=== PATIENT | female | born 1950 | race Caucasian/White ===

== ENCOUNTER 2018-12-05 10:44 | Emergency (ER) | payer MEDICARE, OTHER ==
[2018-12-05] MEDS ORDERED: METH5TAB87 PO (11:05)
--- NOTE | 2018-12-05 11:06 | ER Report ---
History and Physical Time Seen By MD: 11:06 Hx. of Stated Complaint: DIZZINESS FOR SEVERAL DAYS THAT WOULD COME AND GO. NOW WILL NOT GO AWAY HPI/ROS CHIEF COMPLAINT: dizziness HISTORY OF PRESENT ILLNESS: Pt states that she has been having episodes of feeling lightheaded and dizzy on and off for about one week. States symptoms come and go "i had none yesterday but a couple the day before". Pt states come on suddenly and did not last long until this afternoon.Denies feeling like she is going to pass out. PT statse she feels off balance when they occur and will occasional grab onto something until it passes. Pt initially thought it was positional but today was at the sink standing when it occurred. Pt sat down and it did not go away. Pt state symptoms lasted almost an hour so came here. Currently on my exam has no dizziness. never had cp or abd pain. never had a headache. Pt bp found to be elevated but pt statse "its white coat syndrome". no nausea with symptoms. REVIEW OF SYSTEMS: Constitutional: No fever, no chills. Eyes: No discharge. ENT: No sore throat. Cardiovascular: No chest pain, no palpitations. Respiratory: No cough, no shortness of breath. Gastrointestinal: No abdominal pain, no vomiting. Genitourinary: No hematuria. Musculoskeletal: No back pain. Skin: No rashes. Neurological: No headache, + off balance, dizzy Allergies: Coded Allergies: No Known Drug Allergies (Unverified , 12/05/18) Home Meds Reported Medications Methimazole (METHIMAZOLE) 5 Mg Tablet, 5 MG PO 1-2XD for HYPERTHYROID for 30 Days, CAP.SA 12/05/18 Past Medical/Surgical History pmhx; hyperthyroid, ovarian cyst Pshx: hyster, ovarian cyst Reviewed Nurses Notes: Yes Hx Smoking: No Hx Alcohol Use: No Constitutional Vital Sign - Last 24 Hours 12/05/18 12/05/18 12/05/18 12/05/18 10:48 10:49 10:59 11:14 Pulse 97 81 Resp 18 11 B/P (MAP) 205/90 (128) 205/90 178/88 (118) Pulse Ox 96 91 O2 Delivery Room Air 12/05/18 12/05/18 12/05/18 12/05/18 11:30 11:44 11:49 12:00 Pulse 73 72 Resp 10 8 B/P (MAP) 174/85 (114) 176/91 (119) Pulse Ox 97 93 12/05/18 12/05/18 12:19 13:25 Pulse 77 Resp 11 B/P (MAP) 177/93 (121) Pulse Ox 93 Physical Exam General Appearance: The patient is alert, has no immediate need for airway protection and no signs of toxicity. Eyes: Pupils equal and round no pallor or injection, EOMI ENT: no pharyngeal erythema or exudates, Mucous membranes are moist, TM are nl b/l Respiratory: There are no retractions, lungs are clear to auscultation. Cardiovascular: Regular rate and rhythm. pulses are equal and symmetrical Gastrointestinal: Abdomen is soft and non tender, no masses, bowel sounds normal, no guarding, no rigidity or rebound Neurological: Cranial nerves II-XII grossly intact, no sensory or motor loss, motor 5/5 upper and lower extremities, no dysmetria, no pronator drift Skin: Warm and dry, no rashes. Musculoskeletal: Neck is supple non tender, no vertebral tenderness Extremities are non tender, nonswollen and have full range of motion. DIFFERENTIAL DIAGNOSIS: After history and physical exam differential diagnosis w as considered for benign positional vertigo, posterior cva, dehydration, anemia Medical Decision Making Data Points Result Diagram: 12/05/18 1100 12/05/18 1100 Laboratory Hematology Test 12/05/18 00:00 12/05/18 11:00 Thyroid Stimulating Hormone (TSH) 2.02 uIU/ml (0.46-4.68) Red Blood Count 4.82 M/uL (4.17-5.56) Mean Corpuscular Volume 91.0 fL (80.0-96.0) Mean Corpuscular Hemoglobin 30.8 pg (26.0-33.0) Mean Corpuscular Hemoglobin Concent 33.8 g/dL (32.0-36.0) Red Cell Distribution Width 15.4 % (11.5-14.5) Mean Platelet Volume 8.1 fL (7.2-11.1) Neutrophils (%) (Auto) 51.1 % (39.4-72.5) Lymphocytes (%) (Auto) 36.1 % (17.6-49.6) Monocytes (%) (Auto) 10.3 % (4.1-12.4) Eosinophils (%) (Auto) 1.3 % (0.4-6.7) Basophils (%) (Auto) 1.2 % (0.3-1.4) Nucleated RBC Relative Count (auto) 0.0 /100WBC Neutrophils # (Auto) 3.1 K/uL (2.0-7.4) Lymphocytes # (Auto) 2.2 K/uL (1.3-3.6) Monocytes # (Auto) 0.6 K/uL (0.3-1.0) Eosinophils # (Auto) 0.1 K/uL (0.0-0.5) Basophils # (Auto) 0.1 K/uL (0.0-0.1) Nucleated RBC Absolute Count (auto) 0.00 K/uL Sodium Level 140 mmol/L (137-145) Potassium Level 3.8 mmol/L (3.5-5.0) Chloride Level 111 mmol/L (98-107) Carbon Dioxide Level 22 mmol/L (22-31) Blood Urea Nitrogen 14 mg/dl (7-18) Creatinine 0.80 mg/dl (0.52-1.04) Glomerular Filtration Rate Calc > 60.0 Random Glucose 104 mg/dl (75-110) Calcium Level 10.3 mg/dl (8.4-10.2) Total Bilirubin 0.8 mg/dl (0.2-1.3) Aspartate Amino Transf (AST/SGOT) 23 U/L (0-35) Alanine Aminotransferase (ALT/SGPT) 25 U/L (0-56) Alkaline Phosphatase 56 U/L (0-126) Troponin I < 0.012 ng/ml Total Protein 7.7 g/dl (6.3-8.2) Albumin 4.5 g/dl (3.5-5.0) Chemistry Test 12/05/18 00:00 12/05/18 11:00 Thyroid Stimulating Hormone (TSH) 2.02 uIU/ml (0.46-4.68) White Blood Count 6.0 k/uL (4.5-11.0) Red Blood Count 4.82 M/uL (4.17-5.56) Hemoglobin 14.8 g/dL (12.0-16.0) Hematocrit 43.8 % (34.0-47.0) Mean Corpuscular Volume 91.0 fL (80.0-96.0) Mean Corpuscular Hemoglobin 30.8 pg (26.0-33.0) Mean Corpuscular Hemoglobin Concent 33.8 g/dL (32.0-36.0) Red Cell Distribution Width 15.4 % (11.5-14.5) Platelet Count 343 K/uL (150-450) Mean Platelet Volume 8.1 fL (7.2-11.1) Neutrophils (%) (Auto) 51.1 % (39.4-72.5) Lymphocytes (%) (Auto) 36.1 % (17.6-49.6) Monocytes (%) (Auto) 10.3 % (4.1-12.4) Eosinophils (%) (Auto) 1.3 % (0.4-6.7) Basophils (%) (Auto) 1.2 % (0.3-1.4) Nucleated RBC Relative Count (auto) 0.0 /100WBC Neutrophils # (Auto) 3.1 K/uL (2.0-7.4) Lymphocytes # (Auto) 2.2 K/uL (1.3-3.6) Monocytes # (Auto) 0.6 K/uL (0.3-1.0) Eosinophils # (Auto) 0.1 K/uL (0.0-0.5) Basophils # (Auto) 0.1 K/uL (0.0-0.1) Nucleated RBC Absolute Count (auto) 0.00 K/uL Glomerular Filtration Rate Calc > 60.0 Calcium Level 10.3 mg/dl (8.4-10.2) Total Bilirubin 0.8 mg/dl (0.2-1.3) Aspartate Amino Transf (AST/SGOT) 23 U/L (0-35) Alanine Aminotransferase (ALT/SGPT) 25 U/L (0-56) Alkaline Phosphatase 56 U/L (0-126) Troponin I < 0.012 ng/ml Total Protein 7.7 g/dl (6.3-8.2) Albumin 4.5 g/dl (3.5-5.0) EKG/Imaging EKG Interpretation nsr @ 70 with no acute changes ED Course/Re-evaluation Clinical Indication for ER IV: IV Access ED Course check labs, ekg and ct 12/05/2018 11:51:16 am labs and ekg stable. awaiting ct report. 12/05/2018 12:04:[address] of head no acute hemorrhage or infarction. Pt does have mild nno specific white matter ds suspicious fo rchronic small vessel ischemia. Spoke with pt at length about her results. Pt currently asymptomatic. will give pt an aspirin. Discussed with pt need for out pt follow up. After speaking with pt will also order MRI to rule out posterior cva now. PT continues to feel her bp is due to being in ED. Pt has a cuff at home . Told her to keep a log at home with bp one a day. She is to bring it to her pcp. If continues to be elevated at home then will require blood pressure medication. 12/05/2018 12:21:11 pm Pt called to MRI 12/05/2018 1:47:33 pm Pt MRI does not show anything acute. PT does have chronic ischemic disease. Pt is willing to start a daily aspirin. Pt told she will need bp medicaiton. will start her log. Decision to Disposition Date: Dec 05, 2018 Decision to Disposition Time: 13:50 Depart Departure Latest Vital Signs Vital Signs Date Time Temp Pulse Resp B/P (MAP) Pulse Ox O2 Delivery O2 Flow Rate FiO2 12/05/18 13:25 177/93 (121) 12/05/18 12:19 77 11 93 12/05/18 10:49 Room Air Impression: Primary Impression: Dizziness Additional Impression: Hypertension Condition: Improved Disposition: HOME OR SELF-CARE New Scripts Meclizine Hcl (MECLIZINE HCL) 25 Mg Tablet 25 MG PO Q8H PRN for DIZZINESS, #20 TAB Prov: MAXIMUS SANABRIA V DO 12/05/18 Patient Instructions: Dizziness (ED), Hypertension (ED) Additional Instructions: Your imaging today did not show an acute stroke You did have high blood pressure the whole stay in the emergency room. I recommend you take your blood pressure daily and keep a log of your numbers. Br ing the list to your family doctor who I suspect will want to place you on medication. I recommend you take a daily aspirin to help prevent strokes and heart attacks. Meclizine one every 6-8 hours as needed for dizziness. Follow up with your doctor. Return if symptoms worsen prior to seeing your doctor. Problem Qualifiers Additional Impression: Hypertension Hypertension type: essential hypertension Qualified Codes: I10 - Essential (primary) hypertension MAXIMUS SANABRIA DO Dec 05, 2018 11:06
[2018-12-05] MEDS ORDERED: MECLIZINE HCL 25 MG TAB PO ONE (11:15)
[2018-12-05 11:20] LABS: PLATELET COUNT, AUTOMATED 343 K/uL (150-450)
[2018-12-05] MEDS ORDERED: NS(*) 0.9% 500 ML BAG 500 ML IV ONE (11:40)
--- NOTE | 2018-12-05 11:52 | RADIOLOGY IMAGING REPORT ---
[place] [facility] [place] Emily Gallo : 1950 MR: [id number] V: [id number] EXAM DATE: ORDERING PHYSICIAN: MAXIMUS SANABRIA TECHNOLOGIST: Location: [facility] Patient: Emily Gallo : 1950 Visit/Account:[id number] Date of Sevice: 12/05/2018 EXAMINATION: CT head without IV contrast HISTORY: Dizziness. COMPARISON: None. TECHNIQUE: Contiguous axial images were obtained from the skull base to the vertex without intraven ous contrast. Sagittal and coronal reformatted images are also submitted. One of the following dose optimization techniques was utilized in the performance of this exam: Autom ated exposure control; adjustment of the mA and/or kV according to the patient's size; or use of an i terative reconstruction technique. Specific details can be referenced in the facility's radiology C T exam operational policy. FINDINGS: Brain volume: Normal. Ventricles: Normal. Acute ischemic changes: None. Hemorrhage: No acute intracranial hemorrhage. Masses/edema: None. Perrin-white: Negative. White matter: A few hypodensities in the deep white matter bilaterally. Vessels: Negative. Extra-axial: Negative. Calvarium/scalp: Negative. Skull base/visualized face: Negative. Visualized sinuses/orbits: Previous lens surgery bilaterally. IMPRESSION: 1. No intracranial mass lesion or hemorrhage. No CT evidence of acute infarct. 2. Mild nonspecific white matter disease is suspicious for chronic small vessel ischemia. Report Dictated By: Seema French MD at 12/05/2018 11:43 AM Report E-Signed By: Seema French MD at 12/05/2018 11:49 AM [id number]
[2018-12-05] MEDS ORDERED: ASPIRIN 325 MG TAB PO ONE (12:05)
--- NOTE | 2018-12-05 12:15 | EKG ---
FACILITY: [facility] - [place] PATIENT NAME: STACY JOHNSON : [id number] MR: [id number] V: [id number] EXAM DATE: ORDERING PHYSICIAN: MAXIMUS SANABRIA TECHNOLOGIST: Test Reason : dizziness Blood Pressure : / mmHG Vent. Rate : 071 BPM Atrial Rate : 071 BPM P-R Int : 188 ms QRS Dur : 092 ms QT Int : 416 ms P-R-T Axes : 076 -11 035 degrees QTc Int : 452 ms Normal sinus rhythm Normal ECG When compared with ECG of 05-DEC-2018 11:22, No significant change was found Confirmed by LEXI PATEL ([id number]) on 12/05/2018 8:04:00 PM Referred By: Confirmed By:LEXI PATEL
--- NOTE | 2018-12-05 13:26 | RADIOLOGY IMAGING REPORT ---
FACILITY: [facility] - [place] PATIENT NAME: Emily Gallo : 1950 MR: [id number] V: [id number] EXAM DATE: ORDERING PHYSICIAN: MAXIMUS SANABRIA TECHNOLOGIST: Location: [facility] Patient: Emily Gallo : 1950 Visit/Account:[id number] Date of Sevice: 12/05/2018 EXAMINATION: MRI brain without IV contrast HISTORY: Dizziness, off balance. COMPARISON: CT head from 12/05/2018. TECHNIQUE: Multi-planar, multi-sequence brain MRI was performed without IV contrast. FINDINGS: Brain volume: Normal. Sagittal midline structures: Normal. Ventricles: Normal. Acute ischemic changes: No diffusion restriction present to suggest acute ischemia. Hemorrhage: No acute hemorrhage or hemosiderin staining. Masses/edema: None. Perrin-white: Negative. White matter: Patchy T2/FLAIR hyperintensities in the deep white matter bilaterally. Vessels: Normal. Extra-axial: None. Calvarium/scalp: Negative. Skull base: Negative. Visualized sinuses/orbits: 2 cm mucous retention cyst in the right maxillary sinus. Previous lens s urgery bilaterally. 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 IMPRESSION: 1. No acute infarct, hemorrhage or intracranial mass lesion. 2. [id number] nonspecific white matter disease is suspicious for chronic small vessel ischemia . 3. 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 Report Dictated By: Seema French MD at 12/05/2018 1:19 PM Report E-Signed By: Seema French MD at 12/05/2018 1:22 PM WSN:[id number]
[2018-12-05 13:30] VITALS: BP 175/81
[2018-12-05] MEDS ORDERED: MECL25TA9 PO (13:52)
== END 2018-12-05 14:03 | disposition home or self-care (01) ==
LOC: ER 11:12
DX: R42 Dizziness and giddiness (principal); I10 Essential (primary) hypertension
CPT/HCPCS: 70450; 70551; 84443; 84484; 85025; 93005; 96360; 99284; A9270; J7040; J8597; 82040; 82247; 82310; 82374; 82435; 82565; 82947; 84075; 84132; 84155; 84295; 84450; 84460; 84520